=== PATIENT | male | born 1990 | race Caucasian/White ===

== ENCOUNTER → 2018-07-16 | Outpatient (CLI) | payer OTHER ==
[~2018-07-16] MED LIST: HOLD METFORMIN - RECEIVED CONTRAST 20 ML VIAL IV SCH; IOHEXOL 350 MG/ML 100 ML (OMNIPAQUE 350) VIAL IV ONE
--- NOTE | 2018-07-16 17:07 | Diagnostic Imaging Report ---
PROCEDURE: CT abdomen and pelvis with contrast. TECHNIQUE: Multiple contiguous axial images were obtained through the abdomen and pelvis after administration of intravenous contrast. Auto Exposure Controls were utilized during the CT exam to meet ALARA standards for radiation dose reduction. INDICATION: Abdominal pain. Patient does complain of a lump below the umbilicus as well as nausea and vomiting. COMPARISON: No prior studies are available for comparison. FINDINGS: Lung bases are clear. No focal liver mass is identified. The gallbladder is unremarkable. No biliary duct dilatation is seen. Pancreas and spleen are unremarkable. No adrenal mass is detected. Kidneys are unremarkable. Aorta is non-aneurysmal. There does appear to be moderate stool throughout the colon consistent with constipation. In particular the right colon and transverse colon show moderate stool. Small bowel is nondilated. There is no free fluid identified. Bladder is unremarkable. No mass is identified. IMPRESSION: 1. Moderate stool suggestive of constipation. The study is otherwise unremarkable. Dictated by: Dictated on workstation # [id number]
== END ==
LOC: RAD 16:22
PROVIDERS: ATTEND Pediatrics
DX: R11.2 Nausea with vomiting, unspecified (principal); R10.31 Right lower quadrant pain
CPT/HCPCS: 74177

== ENCOUNTER 2018-09-21 02:06 | Emergency (ER) | payer OTHER ==
[~2018-09-21] VITALS: Ht 170.2 cm; Wt 65.8 kg
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
[2018-09-21 02:26] VITALS: BP 153/79
== END 2018-09-21 02:26 | disposition home or self-care (01) ==
LOC: EDUNIT# 02:06 → ER FS 02:08
DX: Z04.1 Encounter for examination and observation following transport accident (principal); R40.2142 Coma scale, eyes open, spontaneous, at arrival to emergency department; R40.2252 Coma scale, best verbal response, oriented, at arrival to emergency department; R40.2362 Coma scale, best motor response, obeys commands, at arrival to emergency department; V49.50XA Passenger injured in collision with unspecified motor vehicles in traffic accident, initial encounter
CPT/HCPCS: 99283

== ENCOUNTER 2020-07-13 14:04 | Emergency (ER) | payer OTHER ==
[~2020-07-13] VITALS: Ht 167 cm; Wt 72.0 kg
[2020-07-13] MEDS ORDERED: NS IV 1000 ML 1,000 ML IV STA (14:49)
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
[2020-07-13 15:22] LABS: HEMATOCRIT 45 % (40-54); HEMOGLOBIN 15.6 G/DL (13.3-17.7); MEAN CORPUSCULAR HEMOGLOBIN 32 PG (25-34); MEAN CORPUSCULAR HGB CONC 35 G/DL (32-36); MEAN CORPUSCULAR VOLUME 93 FL (80-99); WHITE BLOOD COUNT 5.8 10^3/uL (4.3-11.0)
[2020-07-13 15:23] LABS: MEAN PLATELET VOLUME 9.3 FL (7.4-10.4); PLATELET COUNT 278 10^3/uL (130-400)
[2020-07-13 15:24] LABS: BACTERIA,URINE NEGATIVE /HPF; BASOPHILS % (AUTO) 1 % (0-10); BILIRUBIN,URINE NEGATIVE (NEGATIVE); CLARITY,URINE CLEAR; COLOR,URINE YELLOW; EOSINOPHILS # (AUTO) 0.1 10^3/uL (0.0-0.3); EOSINOPHILS % (AUTO) 1 % (0-10); GLUCOSE, URINE (UA) NEGATIVE (NEGATIVE); KETONES,URINE NEGATIVE (NEGATIVE); LEUKOCYTE ESTERASE ,URINE NEGATIVE (NEGATIVE); LYMPHOCYTES # (AUTO) 1.8 X 10^3 (1.0-4.0); LYMPHOCYTES % (AUTO) 30 % (12-44); MONOCYTES # (AUTO) 0.8 X 10^3 (0.0-1.0); MONOCYTES % (AUTO) 14 % (0-12); NEUTROPHILS # (AUTO) 3.1 X 10^3 (1.8-7.8); NEUTROPHILS % (AUTO) 54 % (42-75); NITRITE,URINE NEGATIVE (NEGATIVE); PROTEIN,URINE NEGATIVE (NEGATIVE); SQUAMOUS EPITHELIAL CELL,UR RARE /HPF
[2020-07-13 15:27] LABS: AMPHETAMINE SCREEN, URINE POSITIVE (NEGATIVE); BARBITURATE SCREEN URINE NEGATIVE (NEGATIVE); BENZODIAZEPINES SCREEN URINE NEGATIVE (NEGATIVE); CANNABINOID SCREEN, URINE POSITIVE (NEGATIVE); COCAINE SCREEN URINE NEGATIVE (NEGATIVE); METHADONE STAT NEGATIVE (NEGATIVE); METHAMPHETAMINE SCREEN URINE S NEGATIVE (NEGATIVE); OPIATE SCREEN URINE NEGATIVE (NEGATIVE); OXYCODONE STAT NEGATIVE (NEGATIVE); PROPOXYPHENE STAT NEGATIVE (NEGATIVE); TRICYCLIC ANTIDEPRESSANTS SCRE NEGATIVE (NEGATIVE)
[2020-07-13 15:35] LABS: ALANINE AMINOTRANSFERASE 13 U/L (0-55); ALBUMIN 4.5 GM/DL (3.2-4.5); ALKALINE PHOSPHATASE 106 U/L (40-136); BILIRUBIN,TOTAL 0.2 MG/DL (0.1-1.0); BUN/CREATININE RATIO 22; CARBON DIOXIDE 28 MMOL/L (21-32); CHLORIDE 100 MMOL/L (98-107); CREATININE SERUM 0.92 MG/DL (0.60-1.30); GFR ESTIMATED > 60; GLUCOSE 92 MG/DL (70-105); POTASSIUM 4.5 MMOL/L (3.6-5.0); SODIUM 139 MMOL/L (135-145); TOTAL PROTEIN 7.2 GM/DL (6.4-8.2)
[2020-07-13 15:36] LABS: ACETAMINOPHEN < 10 UG/ML (10-30); SALICYLATE < 0.3 MG/DL (5.0-20.0)
--- NOTE | 2020-07-13 15:43 | Diagnostic Imaging Report ---
PROCEDURE: CT head without contrast. TECHNIQUE: Multiple contiguous axial images were obtained through the brain without the use of intravenous contrast. Auto Exposure Controls were utilized during the CT exam to meet ALARA standards for radiation dose reduction. INDICATION: Seizure-like activity with head pain. COMPARISON: I have no relevant comparison. FINDINGS: There is no hemorrhage, hydrocephalus, edema, mass, mass effect, nor evidence for an elevation of the intracerebral pressures. No sulcal effacement. The paulson-white matter differentiation is maintained. The basilar cisterns are patent. There are no abnormal extra-axial fluid collections. Orbits, sinuses, and calvarium appeared nonacute. IMPRESSION: This is a normal CT head. Dictated by: Dictated on workstation # [id number]
[2020-07-13 16:33] VITALS: BP 121/68
== END 2020-07-13 16:35 | disposition home or self-care (01) ==
LOC: EDUNIT# 14:04 → ER FS 14:06
DX: R25.9 Unspecified abnormal involuntary movements (principal); R51.9 Headache, unspecified; R47.89 Other speech disturbances; R25.3 Fasciculation; F90.9 Attention-deficit hyperactivity disorder, unspecified type; R19.7 Diarrhea, unspecified; R30.0 Dysuria; F17.210 Nicotine dependence, cigarettes, uncomplicated; Z79.899 Other long term (current) drug therapy
CPT/HCPCS: 36415; 70450; 80053; 80306; 81000; 85025; G0480 ×3; 80320; 80329; 93005